=== PATIENT | male | born 1975 | race African-American/Black ===

== ENCOUNTER 2021-10-21 03:41 | Emergency (ER) | payer SELFPAY ==
[~2021-10-21] VITALS: Ht 193 cm; Wt 104.5 kg
[2021-10-21] MEDS ORDERED: NEOM10SO7 RIGHT EAR (04:25)
--- NOTE | 2021-10-21 04:25 | PHYS DOC ---
Adult General Chief Complaint Chief Complaint: EARACHE/EAR PAIN HPI HPI The patient is a 45-year-old male with a history of hypertension, hyperlipidemia and insulin-dependent diabetes. He is compliant with his insulin therapy but states he usually forgets to take his blood pressure medicine. Mr. Woodard presents for evaluation of right ear discomfort with onset over the last 2 to 3 days. Discomfort localizes over the external auditory canal on the right and is worse with manipulation of the tragus. No associated fevers, nausea or vomiting, upper respiratory congestion/rhinorrhea, cough, headache, focal or lateralizing weakness, numbness or tingling, neck stiffness/pain/meningismus, vision changes, sore throat, pain with swallowing, mastoid tenderness or swelling bilaterally, diminished hearing. Patient is alert and pleasantly and appropriately interactive and in no acute distress with appropriate vital signs aside from quite elevated blood pressure upon initial evaluation here in the emergency department. Patient states he has forgotten to take his blood pressure medicine over the past few days. Review of Systems Review of Systems A 12 point review of systems was completed and was negative except where noted in HPI above. Physical Exam Physical Exam 45-year-old male appearing nontoxic and in no acute distress. Head is normocephalic and atraumatic. Neck is supple and nontender. Oropharynx is moist. No mastoid tenderness or swelling or erythema bilaterally. There is tenderness with manipulation of the tragus on the right. There is mild external auditory canal swelling and erythema on the right. Tympanic membranes clear bilaterally. Lungs are clear to auscultation at all stations. There is a normal S1 and S2 without rubs or gallops and capillary refill is appropriate, less than 2 seconds globally. Abdomen is soft, nontender nondistended. Skin is warm and dry without cyanosis, clubbing or edema. Psychiatrically, the patient demonstrates appropriate mood and affect and is alert. Evaluation of the extremities reveals BUEs and BLEs neurovascularly intact distally with strength out of 5, sensation intact light touch in all nerve distributions, radial, DP and PT pulses 2+ and equal bilaterally, capillary refill less than 2 seconds, hands and feet warm and well-perfused. No dependent peripheral edema distally. No calf tenderness or swelling bilaterally. EKG EKG [] Radiology/Procedures Radiology/Procedures [] Course & Med Decision Making Course & Med Decision Making 45-year-old gentleman here with a mild right-sided otitis externa. No otitis media or mastoiditis by history or exam. Blood pressure quite elevated but no signs or symptoms of acute endorgan damage today. This appears to be a chronic issue for the patient. He is advised to take his blood pressure medicine as prescribed and to follow-up closely with his primary for a recheck of his blood pressure management. Will prescribe Cortisporin otic for otitis externa. Tylenol as needed for discomfort. Patient understands that if he feels worse instead of better or develops other new symptoms of concern that he will need to return to the emergency department immediately for reevaluation. All questions were an swered. Dragon Disclaimer Dragon Disclaimer This electronic medical record was generated, in whole or in part, using a voice recognition dictation system. Departure Departure Impression: Primary Impression: Right otitis externa Additional Impression: Benign essential hypertension Disposition: HOME / SELF CARE / HOMELESS Condition: GOOD Patient Instructions: Hypertension, Otitis Externa Additional Instructions: Follow-up very closely with your primary care doctor in the office in the next 2 to 4 days for reevaluation of your symptoms and to discussion of next best steps in care. Begin taking the Cortisporin otic medicated ear medication as prescribed and take for the next 5 days to resolve your ear infection. You may take a 500 mg extra Tylenol every 6 hours as needed for discomfort. Drink plenty of fluids. Your blood pressure was elevated today. Please take your home blood pressure medicines as prescribed. Please follow-up with your primary doctor in the next 1 to 2 weeks regarding your blood pressure management. Return to the emergency department right away for worsening symptoms of any kind or with any other new symptoms of concern. Scripts Neomycin/Polymyxin B Sulf/Hc ([id number] EAR SOLN) 10 Ml Solution 4 DROP RIGHT EAR QID for 5 Days, #10 ML 0 Refills Prov: REMEDIOS BENZ MD 10/21/21 Problem Qualifiers REMEDIOS BENZ MD Oct 21, 2021 04:25
[2021-10-21 04:28] VITALS: BP 207/104
== END 2021-10-21 04:30 | disposition home or self-care (01) ==
LOC: ER 03:41
DX: H60.91 Unspecified otitis externa, right ear (principal); I10 Essential (primary) hypertension; E11.9 Type 2 diabetes mellitus without complications; E78.5 Hyperlipidemia, unspecified
CPT/HCPCS: 99283